=== PATIENT | female | born 1945 | race Caucasian/White ===

== ENCOUNTER → 2021-04-13 | Outpatient (CLI) | payer MEDICARE | LOC: SLEEP-COR 15:18 | DX: R06.83 Snoring (principal); J32.4 Chronic pansinusitis; J34.2 Deviated nasal septum; J34.3 Hypertrophy of nasal turbinates; H92.03 Otalgia, bilateral; G47.33 Obstructive sleep apnea (adult) (pediatric); Z88.1 Allergy status to other antibiotic agents | CPT/HCPCS: 95810 ==